=== PATIENT | male | born 2000 | race Two or more races ===

== ENCOUNTER → 2021-04-13 | Outpatient (CLI) | payer MEDICAID ==
[~2021-04-13] MED LIST: LEVE500T56 PO
--- NOTE | 2021-04-13 11:17 | RAD ---
INDICATION: Reason: EPIGASTRIC PAIN, CALCULUS OF GB W/O OBS./CHOLECYSTITIS / Spl. Instructions: / H istory: COMPARISON: March 2013 CT TECHNIQUE: 5.4mCi of Tc99m Choletec was injected intravenously followed by scintigraphic images of the abdomen. Oral ensure was given and a gallbladder ejection fraction was calculated. FINDINGS: Appropriate radiotracer clearance from the blood pool. Appropriate radiotracer excretion into the biliary tree. Prompt passage of contrast into the small bowel. Visualization of the gallbladder prior to the 60 minute time point. Gallbladder ejection fraction is 1 percent. IMPRESSION: * No scintigraphic evidence of acute cholecystitis or high grade biliary obstruction. * Gallbladder ejection fraction is approximately 1 percent which can be seen with biliary dyskinesi a. Electronically signed by: Abhijit Joseph MD (04/13/2021 11:14 AM) [id number]
== END ==
LOC: NM 07:35
PROVIDERS: ATTEND Family Medicine
DX: K80.20 Calculus of gallbladder without cholecystitis without obstruction (principal); R10.13 Epigastric pain; R19.7 Diarrhea, unspecified
CPT/HCPCS: 78227; A9537